=== PATIENT | male | born 1970 | race Caucasian/White ===

== ENCOUNTER 2022-11-14 10:11 | Emergency (ER) | payer MEDICARE, MEDICAID ==
[2022-11-14] MEDS ORDERED: CARA1TAB6 PO (10:33)
[2022-11-14] MEDS ORDERED: FELB600T5 PO (10:36)
[2022-11-14] MEDS ORDERED: PROP60TA18 PO (10:36)
[2022-11-14] MEDS ORDERED: DIVA250T67 PO (10:36)
[2022-11-14 16:00] VITALS: BP 117/68; TEMP 97.5; O2SAT 99
== END 2022-11-14 16:02 | disposition home or self-care (01) ==
LOC: M ED 10:11
DX: R31.0 Gross hematuria (principal); I10 Essential (primary) hypertension; E78.00 Pure hypercholesterolemia, unspecified; Z79.899 Other long term (current) drug therapy; Z88.1 Allergy status to other antibiotic agents

== ENCOUNTER → 2023-02-07 | Outpatient (CLI) | payer MEDICARE, MEDICAID ==
[~2023-02-07] MED LIST: CARA1TAB6 PO; DIVA250T67 PO; FELB600T5 PO; PROP60TA18 PO
== END ==
LOC: M WUC 10:01
PROVIDERS: ATTEND Nurse Practitioner Family
DX: M79.672 Pain in left foot (principal)

== ENCOUNTER → 2023-06-11 | Outpatient (CLI) | payer MEDICARE, MEDICAID | LOC: M WUC 08:58 | PROVIDERS: ATTEND Psychiatry & Neurology Neurology | DX: G40.109 Localization-related (focal) (partial) symptomatic epilepsy and epileptic syndromes with simple partial seizures, not intractable, without status epilepticus (principal) ==